=== PATIENT | male | born 1980 | race African-American/Black ===

== ENCOUNTER 2018-05-03 01:59 | Emergency (ER) | payer SELFPAY ==
[~2018-05-03] VITALS: Ht 180.3 cm; Wt 81.0 kg
[2018-05-03 04:35] VITALS: BP 123/76
[2018-05-03] MEDS ORDERED: ZIPRASIDONE HCL 20MG CAPSULE PO STA (04:50)
[2018-05-03] MEDS ORDERED: LORAZEPAM 1MG TABLET PO ONE (05:00)
[2018-05-03 05:27] LABS: BASOPHILS % 0.6 % (0.0-2.0); EOSINOPHILS % 0.5 % (0.0-5.0); HEMATOCRIT. 38.2 % (42.0-52.0); HEMOGLOBIN. 12.4 g/dL (14.0-18.0); LYMPHOCYTES % 22.2 % (20.0-50.0); MEAN CORPUSCULAR HEMOGLOBIN 30.9 pg (28.0-32.0); MEAN CORPUSCULAR VOLUME 94.9 fL (80.0-94.0); MEAN PLATELET VOLUME 7.4 fl (7.4-10.4); NEUTROPHILS % 68.7 % (40.0-76.0); PLATELET 292 x1000/uL (130-400); RED BLOOD CELL COUNT 4.02 mill/uL (4.7-6.1); RED CELL DISTRIBUTION WIDTH 12.2 % (11.6-14.6)
[2018-05-03 05:34] LABS: CHLORIDE 103 mEq/L (98-107)
[2018-05-03 05:39] LABS: ETHANOL BLOOD < 10 mg/dL
[2018-05-03 05:54] LABS: CREATINE KINASE 1143 IU/L (39-308)
== END 2018-05-03 10:56 | disposition home or self-care (01) ==
LOC: ER 01:59
DX: R41.82 Altered mental status, unspecified (principal); M79.644 Pain in right finger(s); R45.1 Restlessness and agitation; F12.10 Cannabis abuse, uncomplicated; Y08.89XA Assault by other specified means, initial encounter; Y93.67 Activity, basketball; Y92.89 Other specified places as the place of occurrence of the external cause; Y99.8 Other external cause status
CPT/HCPCS: 36415; 80053; 80307; 80329; 82550; 84443; 84484; 85025; 93005; 99285; G0482

== ENCOUNTER 2018-05-12 20:16 | Emergency (ER) | payer SELFPAY ==
[~2018-05-12] VITALS: Ht 185.4 cm; Wt 91.0 kg
[2018-05-12 21:15] VITALS: BP 126/73
[2018-05-12] MEDS ORDERED: ALBUTEROL (0.083%) 2.5MG/3ML NEB HHN STA (21:44)
[2018-05-12] MEDS ORDERED: IPRATROPIUM BROMIDE (0.02%) 0.5MG/2.5ML NEB HHN STA (21:44)
== END 2018-05-12 23:56 | disposition home or self-care (01) ==
LOC: ER 20:40
DX: R07.89 Other chest pain (principal); R06.2 Wheezing; R05 Cough; R91.8 Other nonspecific abnormal finding of lung field; J40 Bronchitis, not specified as acute or chronic; K40.90 Unilateral inguinal hernia, without obstruction or gangrene, not specified as recurrent; F22 Delusional disorders; R10.32 Left lower quadrant pain; I10 Essential (primary) hypertension; F17.210 Nicotine dependence, cigarettes, uncomplicated; F12.90 Cannabis use, unspecified, uncomplicated
CPT/HCPCS: 71045; 93005; 99284; J7611; Z7610

== ENCOUNTER 2018-09-16 02:22 | Emergency (ER) | payer MEDICAID ==
[~2018-09-16] VITALS: Ht 182.9 cm; Wt 84.0 kg
[2018-09-16 02:28] VITALS: BP 142/76
== END 2018-09-16 03:05 | disposition home or self-care (01) ==
LOC: ER 02:22
DX: J45.909 Unspecified asthma, uncomplicated (principal); Z76.0 Encounter for issue of repeat prescription; F17.200 Nicotine dependence, unspecified, uncomplicated; F12.10 Cannabis abuse, uncomplicated
CPT/HCPCS: 99283